=== PATIENT | male | born 1965 | race Caucasian/White ===

== ENCOUNTER 2016-10-11 13:28 | Emergency (ER) | payer BC ==
[~2016-10-11] VITALS: Ht 175.3 cm; Wt 93.7 kg
[~2016-10-11 13:28] MED LIST: Amoxicillin PO; DILANTIN100 MG PO; FLEXERIL5 M1 PO; Habitrol,Nicoderm CQ TD; LOPRESSOR50 MG PO; Percocet 5/325,Endoc PO; TOPROL XL50 MG PO; VASOTEC10 M1 PO; VASOTEC20 MG PO
[2016-10-11] MEDS ORDERED: ATORVASTATIN CA10 MG PO (13:50)
[2016-10-11] MEDS ORDERED: HYDROCHLOROTH12.5 M3 PO (13:50)
[2016-10-11] MEDS ORDERED: ROWEEPRA500 MG PO (13:51)
[2016-10-11] MEDS ORDERED: ZESTRIL20 MG PO (13:51)
[2016-10-11] MEDS ORDERED: OMEPRAZOLE20 MG PO (13:52)
[2016-10-11 15:12] LABS: HEMATOCRIT 47.8 % (38.0-50.0); MCH 32.9 PG (29.0-34.0); MCHC 34.9 G/DL (30.0-36.0); MCV 94.3 FL (86-99); MEAN PLAT.VOLUME 8.7 uM^3 (9.0-12.4); PLATELET COUNT 325 K/uL (156-360); RBC DIS.WIDTH-CV 13.2 % (11.8-14.6); RED BLOOD COUNT 5.07 M/uL (4.00-5.50); WHITE BLOOD COUNT 18.7 K/uL (4.1-10.2)
[2016-10-11 15:20] LABS: CHLORIDE 103 mEq/L (99-109); POTASSIUM 3.9 mEq/L (3.7-5.4); SODIUM 140 mEq/L (136-147)
[2016-10-11 15:22] LABS: GLUCOSE 93 mg/dL (70-99)
[2016-10-11 15:23] LABS: ANION GAP 11 MEQ/L (2-14)
[2016-10-11 15:24] LABS: TOTAL BILIRUBIN 0.5 mg/dL (0.0-1.0)
[2016-10-11 15:25] LABS: ALKALINE PHOSPHATASE 70 IU/L (3-129); SERUM ETHYL ALCOHOL < 10 mg/dL
[2016-10-11 15:26] LABS: GFR ESTIMATE (CALCULATED) > 59 mL/min/
[2016-10-11 15:27] LABS: UREA NITROGEN (BUN) 25 mg/dL (9-23)
[2016-10-11] MEDS ORDERED: KEPPRA500 MG PO (16:11)
[2016-10-11 16:24] VITALS: BP 122/70
== END 2016-10-11 16:25 | disposition home or self-care (01) ==
LOC: EME → EDBD 13:28 → EME 16:25
PROVIDERS: Emergency Medicine
PROC: 3E0234Z Introduction of Serum, Toxoid and Vaccine into Muscle, Percutaneous Approach (ICD-10-PCS; principal; 2016-10-11)
DX: G40.909 Epilepsy, unspecified, not intractable, without status epilepticus (principal); S00.81XA Abrasion of other part of head, initial encounter; T42.76XA Underdosing of unspecified antiepileptic and sedative-hypnotic drugs, initial encounter; Z23 Encounter for immunization; Z91.14 Patient's other noncompliance with medication regimen
CPT/HCPCS: 70450; 80053; 85027; 93005; 99281; 99284; G0480; J1953; J7050

== ENCOUNTER 2017-04-29 16:02 | Emergency (ER) | payer BC ==
[~2017-04-29] VITALS: Ht 175.3 cm; Wt 88.9 kg
[~2017-04-29 16:02] MED LIST changes: +ATORVASTATIN CA10 MG PO; +HYDROCHLOROTH12.5 M3 PO; +KEPPRA500 MG PO; +OMEPRAZOLE20 MG PO; +ROWEEPRA500 MG PO; +ZESTRIL20 MG PO
[2017-04-29] MEDS ORDERED: PERCOCET 5/31 TABLET PO (20:31)
[2017-04-29 20:47] VITALS: BP 160/102
== END 2017-04-29 21:04 | disposition home or self-care (01) ==
LOC: EME 16:02
DX: S59.911A Unspecified injury of right forearm, initial encounter (principal); X50.0XXA Overexertion from strenuous movement or load, initial encounter; Y99.0 Civilian activity done for income or pay; I10 Essential (primary) hypertension; G40.909 Epilepsy, unspecified, not intractable, without status epilepticus; F17.200 Nicotine dependence, unspecified, uncomplicated
CPT/HCPCS: 73090; 99281; 99284

== ENCOUNTER 2018-02-08 10:23 | Inpatient (IN) | payer OTHER ==
[2018-02-08] VITALS (17 sets, daily range): BP systolic 82–137; BP diastolic 64–116
[~2018-02-08] VITALS: Ht 175.3 cm; Wt 93.5 kg
[~2018-02-08 10:23] MED LIST changes: +PERCOCET 5/31 TABLET PO; +ZESTRIL10 MG PO; -ZESTRIL20 MG PO
[2018-02-08 10:51] LABS: HEMATOCRIT 45.4 % (38.0-50.0); MCH 34.2 PG (29.0-34.0); MCHC 35.2 G/DL (30.0-36.0); PLATELET COUNT 225 K/uL (156-360); RBC DIS.WIDTH-CV 12.8 % (11.8-14.6); RBC DIS.WIDTH-SD 45.8 % (39-53); RED BLOOD COUNT 4.68 M/uL (4.00-5.50); WHITE BLOOD COUNT 6.3 K/uL (4.1-10.2)
[2018-02-08 11:16] LABS: CHLORIDE 107 mEq/L (99-109); POTASSIUM 3.5 mEq/L (3.7-5.4); SODIUM 141 mEq/L (136-147)
[2018-02-08 11:18] LABS: GLUCOSE 104 mg/dL (70-99); TOTAL PROTEIN 6.8 g/dL (6.4-8.3)
[2018-02-08 11:20] LABS: TOTAL BILIRUBIN 0.4 mg/dL (0.0-1.0)
[2018-02-08 11:21] LABS: ALKALINE PHOSPHATASE 76 IU/L (3-129)
[2018-02-08 11:22] LABS: CREATININE 1.1 mg/dL (0.6-1.3); GFR ESTIMATE (CALCULATED) > 59 mL/min/ (58.99-99999)
[2018-02-08 11:23] LABS: AST (GOT) 26 IU/L (2-34); DIRECT BILIRUBIN 0.2 mg/dL (0.0-0.3); UREA NITROGEN (BUN) 16 mg/dL (9-23)
[2018-02-08 11:24] LABS: ALT (GPT) 21 IU/L (3-49)
[2018-02-08 11:25] LABS: LIPASE 47 U/L (1.0-51.0)
[2018-02-08 11:30] LABS: TROP-I INTERPRETATION POSITIVE
[2018-02-08 11:32] LABS: TROPONIN-I 0.82 ng/mL (0.0-0.30)
[2018-02-08 12:27] LABS: PTT 29.9 SEC (25-37)
[2018-02-08 19:17] LABS: TROP-I INTERPRETATION POSITIVE
[2018-02-08 19:20] LABS: CK-MB 207.6 ng/mL (0.0-4.9)
[2018-02-08 19:24] LABS: TROPONIN-I 26.79 ng/mL (0.0-0.30)
[2018-02-08 20:37] LABS: CKMB RELATIVE INDEX 14.1 (0.0-3.9); TOTAL CK 1470 IU/L (1-294)
[2018-02-08 20:38] LABS: CREATINE KINASE 1470 IU/L (1-294)
[2018-02-09] VITALS (15 sets, daily range): BP systolic 10–103; BP diastolic 50–76
[2018-02-09 05:57] LABS: CHLORIDE 107 MEQ/L (99-109); CREATININE 0.8 MG/DL (0.6-1.3); GFR ESTIMATE (CALCULATED) > 59 mL/min/ (58.99-99999); GLUCOSE 103 mg/dL (70-99); HDL CHOLESTEROL 22 MG/DL (Desirable>=40); LDL CHOLESTEROL 56 mg/dL (Desirable<100); NON-HDL CHOLESTEROL 95 mg/dL (Desirable<160); POTASSIUM 3.7 MEQ/L (3.7-5.4); SODIUM 137 MEQ/L (136-147); TOTAL CHOLESTEROL 117 mg/dL (Desirable<200); TRIGLYCERIDES 197 MG/DL (Normal: <150); UREA NITROGEN (BUN) 10 mg/dL (9-23)
[2018-02-09 05:58] LABS: TROP-I INTERPRETATION POSITIVE; TROPONIN-I 47.83 ng/mL (0.0-0.30)
[2018-02-09 06:02] LABS: TOTAL CK 1423 IU/L (1-294)
[2018-02-09 06:04] LABS: CREATINE KINASE 1423 IU/L (1-294)
[2018-02-09 06:25] LABS: BASOPHIL (%) 0.1 % (0-1); EOSINOPHIL COUNT 0.5 K/uL (0-0.3); HEMATOCRIT 39.3 % (38.0-50.0); IMMATURE GRANULOCYTE (%) 0.4 % (0.0-0.7); LYMPHOCYTE (%) 21.2 % (15-42); LYMPHOCYTE COUNT 1.7 K/uL (1.0-2.8); MCH 33.2 PG (29.0-34.0); MCHC 34.1 G/DL (30.0-36.0); MCV 97.3 FL (86-99); MONOCYTE (%) 7.2 % (3-12); MONOCYTE COUNT 0.6 K/uL (0-0.8); NEUTROPHIL (%) 65.1 % (45-76); NEUTROPHIL COUNT 5.4 K/uL (1.8-6.4); PLATELET COUNT 215 K/uL (156-360); RBC DIS.WIDTH-CV 12.9 % (11.8-14.6); RED BLOOD COUNT 4.04 M/uL (4.00-5.50); WHITE BLOOD COUNT 8.2 K/uL (4.1-10.2)
[2018-02-09 06:29] LABS: HEMOGLOBIN 13.4 G/DL (12.5-16.6)
[2018-02-09 07:05] LABS: CK-MB 161.3 ng/mL (0.0-4.9); CKMB RELATIVE INDEX 11.3 (0.0-3.9)
[2018-02-10 04:20] VITALS: BP 95/55
[2018-02-10 06:54] VITALS: BP 89/53
[2018-02-10 12:24] VITALS: BP 97/63
[2018-02-10 12:42] LABS: CHLORIDE 107 MEQ/L (99-109); CREATININE 0.8 MG/DL (0.6-1.3); GFR ESTIMATE (CALCULATED) > 59 mL/min/ (58.99-99999); GLUCOSE 94 mg/dL (70-99); MAGNESIUM 1.8 mg/dl (1.3-2.7); SODIUM 139 MEQ/L (136-147); UREA NITROGEN (BUN) 12 mg/dL (9-23)
[2018-02-10] MEDS ORDERED: CORDARONE200 MG PO (13:08)
[2018-02-10] MEDS ORDERED: ELIQUIS5 MG PO (13:08)
[2018-02-10] MEDS ORDERED: CLOPIDOGREL75 MG PO (13:08)
[2018-02-10] MEDS ORDERED: LOPRESSOR25 MG PO (13:09)
[2018-02-10] MEDS ORDERED: ASPIR-LOW81 MG PO (13:09)
[2018-02-10] MEDS ORDERED: ATORVASTATIN CA80 MG PO (13:09)
== END 2018-02-10 14:56 | disposition home or self-care (01) | DRG 247 ==
LOC: EME 10:23 → ENRESERV 12:10 → CANRESERV 12:10 → ENRESERV 12:26 → CATH 12:53 → EME 12:53 → 4EAST 13:44 → 4WEST 13:44 → 4EAST 02-09 10:28 → ENRESERV 02-09 10:31 → 4EAST 02-09 12:16
PROVIDERS: Emergency Medicine; Internal Medicine Cardiovascular Disease; Internal Medicine Interventional Cardiology
PROC: B2151ZZ Fluoroscopy of Left Heart using Low Osmolar Contrast (ICD-10-PCS; principal; 2018-02-08)
PROC: 027034Z Dilation of Coronary Artery, One Artery with Drug-eluting Intraluminal Device, Percutaneous Approach (ICD-10-PCS; principal; 2018-02-08)
PROC: B2111ZZ Fluoroscopy of Multiple Coronary Arteries using Low Osmolar Contrast (ICD-10-PCS; principal; 2018-02-08)
PROC: 3E073GC Introduction of Other Therapeutic Substance into Coronary Artery, Percutaneous Approach (ICD-10-PCS; principal; 2018-02-08)
PROC: 4A023N7 Measurement of Cardiac Sampling and Pressure, Left Heart, Percutaneous Approach (ICD-10-PCS; principal; 2018-02-08)
DX: I21.21 ST elevation (STEMI) myocardial infarction involving left circumflex coronary artery (principal); I47.2 Ventricular tachycardia; I95.9 Hypotension, unspecified; I48.0 Paroxysmal atrial fibrillation; Q24.5 Malformation of coronary vessels; I10 Essential (primary) hypertension; E78.5 Hyperlipidemia, unspecified; G40.909 Epilepsy, unspecified, not intractable, without status epilepticus; K21.9 Gastro-esophageal reflux disease without esophagitis; F17.210 Nicotine dependence, cigarettes, uncomplicated; Q25.0 Patent ductus arteriosus; Z59.0 Homelessness; Z82.49 Family history of ischemic heart disease and other diseases of the circulatory system
CPT/HCPCS: 71046; 80048; 80061; 80076; 82550; 82550 91; 82553; 83690; 83735; 83880; 84484; 85025; 85027; 85347; 85610; 85730; 87641; 93005; 99281; 99285; C1725; C1769; C1874; C1887; J0461; J1644; J2250; J2270; J3010; J3246; J7030; J7050